=== PATIENT | male | born 1995 | race Caucasian/White ===

== ENCOUNTER 2017-01-13 19:19 | Emergency (ER) | payer SELFPAY ==
[~2017-01-13] VITALS: Ht 185.4 cm; Wt 102.5 kg
--- NOTE | 2017-01-13 19:19 | NUR ---
Patient BIB [facility] to be evaluated for pre-booking, transferred to bed 4. RN evaluating patient at bedside.
[2017-01-13 19:20] VITALS: BP 149/89
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
--- NOTE | 2017-01-13 20:15 | NUR ---
APPLIED BACTERICIN OINTMENT TO ABRATION ON HEAD AND LT. EYEBROW
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
[2017-01-13] MEDS ORDERED: BACITRACIN OINT 500 UNITS/GM PKT TP ONE (20:23)
[2017-01-13 20:48] VITALS: BP 149/89
--- NOTE | 2017-01-13 20:48 | NUR ---
Patient discharged with v/s stable. Written and verbal after care instructions given and explained. Patient verbalized understanding. Ambulatory with steady gait. All questions addressed prior to discharge. Advised to follow up with PMD.
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
[2017-01-15 12:51] LABS: HEPATITIS A ANTIBODY IGM Negative (Negative); HEPATITIS A ANTIBODY TOTAL Positive (Negative); HEPATITIS B CORE AB TOTAL Negative (Negative); HEPATITIS B CORE, IGM Negative (Negative); HEPATITIS B SURFACE AB Reactive (.); HEPATITIS B SURFACE ANTIGEN Negative (Negative); HEPATITIS C VIRUS ANTIBODY <0.1 s/co ratio (0.0-0.9); HIV 1/0/2 ABS, QUAL Non Reactive (Non Reactive)
== END 2017-01-13 20:48 | disposition home or self-care (01) ==
LOC: EDBD 19:19 → MED 19:19
DX: Z02.89 Encounter for other administrative examinations (principal); S01.112A Laceration without foreign body of left eyelid and periocular area, initial encounter; S00.81XA Abrasion of other part of head, initial encounter; F10.129 Alcohol abuse with intoxication, unspecified; R03.0 Elevated blood-pressure reading, without diagnosis of hypertension
CPT/HCPCS: 36415; 86592; 86702; 86704; 86706; 86708; 86709; 86803; 87340; 99284